=== PATIENT | female | born 1990 | race Caucasian/White ===

== ENCOUNTER 2017-05-27 03:06 | Inpatient (IN) | payer OTHER ==
[2017-05-27] MEDS ORDERED: OXYTOCIN* 10 UNITS/ML 1 ML VIAL IM ONE (11:54)
[2017-05-27] MEDS ORDERED: Acetaminophen TAB* 325 MG PO PRN (11:54)
[2017-05-27] MEDS ORDERED: Witch Hazel PAD* JAR TOPICAL PRN (11:54)
[2017-05-27] MEDS ORDERED: Glycerin ADULT SUPP PR PRN (11:54)
[2017-05-27] MEDS ORDERED: Dibucaine 1% 28.35 GM TUBE PR PRN (11:54)
[2017-05-27] MEDS ORDERED: Misoprostol TAB* 200 MCG PR ONE (12:05)
[2017-05-27] MEDS: Ibuprofen TAB* 600 MG PO PRN ×2 (12:29→19:18)
[2017-05-27] MEDS: Docusate CAP* 100 MG PO SCH ×2 (12:29→21:29)
[2017-05-27] MEDS ORDERED: Simethicone TAB* 80 MG TAB.CHEW PO SCH (12:30)
[2017-05-28] MEDS: Ibuprofen TAB* 600 MG PO PRN ×2 (04:04→11:27)
[2017-05-28 07:48] LABS: Hematocrit 36 % (35-47); Mean Corpuscular HGB Conc 34 g/dl (31-36); Mean Corpuscular Hemoglobin 32 pg (27-31); Mean Corpuscular Volume 95 fL (80-97); Mean Platelet Volume 9 um3 (7.4-10.4); Red Cell Distribution Width 14 % (10.5-15); White Blood Count 13.5 10^3/ul (3.5-10.8)
[2017-05-28] MEDS ORDERED: Ferrous Gluconate TAB* 324 MG TAB PO SCH (09:00)
[2017-05-28] MEDS: Docusate CAP* 100 MG PO SCH ×3 (09:34→20:52)
--- NOTE | 2017-05-28 20:47 | PTEDU ---
Patient Name: KENNY NOWAK KENNY NOWAK selected video: BBOB: Bonding Through Massage to view on 05/28/2017 at 8:45:18 PM [id number]
[2017-05-29] MEDS: Ibuprofen TAB* 600 MG PO PRN ×2 (00:28→09:01)
[2017-05-29 08:04] VITALS: BP 131/76
[2017-05-29] MEDS: Docusate CAP* 100 MG PO SCH (08:52)
== END 2017-05-29 12:20 | disposition home or self-care (01) | DRG 775 ==
LOC: MCHOBOUT 03:06 → MCHOB 03:47
PROVIDERS: ADMIT Midwife; ATTEND Midwife
PROC: 10E0XZZ Delivery of Products of Conception, External Approach (ICD-10-PCS; principal; 2017-05-27)
PROC: 0HQ9XZZ Repair Perineum Skin, External Approach (ICD-10-PCS; 2017-05-27)
DX: O70.0 First degree perineal laceration during delivery (principal); Z37.0 Single live birth; Z3A.39 39 weeks gestation of pregnancy
CPT/HCPCS: 36415; 85025; A9270-GY; J2590

== ENCOUNTER 2017-08-10 11:18 | Day surgery (SDC) | payer OTHER ==
[~2017-08-10 11:18] MED LIST: Buffered Lidocaine 0.9% SYRIN* 5 ML/SYR SYRINGE INTRADERM ONE
[2017-08-10] MEDS ORDERED: Midazolam* 1 MG/ML 2 ML VIAL (2 MG) ONE (16:06)
[2017-08-10] MEDS ORDERED: fentaNYL* 50 MCG/ML 2 ML VIAL (100 MCG VIAL) ONE (16:06)
[2017-08-10] MEDS ORDERED: Naloxone* 0.4 MG/ML 1 ML VIAL IV PRN (16:21)
[2017-08-10] MEDS ORDERED: Propofol* 10 MG/ML 20 ML BTL IV PUSH ONE (16:25)
[2017-08-10 17:05] VITALS: BP 116/75
--- NOTE | 2017-08-11 05:33 | OP ---
DATE OF OPERATION: 08/10/17 [facility] DATE OF : [birth year] SURGEON: Yovany Lei MD JAVA USER INTERFACE DEVELOPER: ERIBERTO Champion ANESTHESIOLOGIST: Dr. Sutherland ANESTHESIA: Local MAC. PRE-OP DIAGNOSIS: Large left dorsal wrist ganglion. POST-OP DIAGNOSIS: Large left dorsal wrist ganglion. OPERATIVE PROCEDURE: Excision of left wrist dorsal ganglion cyst. INDICATIONS: Stephanie recently gave a child. She has had a large dorsal wrist ganglion cyst that she has been dealing with for quite some time. It has been aspirated. It has come back. She wanted to have it excised. ESTIMATED BLOOD LOSS: 2 mL. COMPLICATIONS: None. FINDINGS: As expected. DESCRIPTION OF PROCEDURE: Stephanie was seen in the preoperative holding area. The correct side, site, and procedure were identified. We came back to the operating room. The arm was prepped and draped in the usual fashion. I had infiltrated the operative area with 0.25% plain Marcaine. A time-out was performed. I made a transverse incision over the cyst. Dissection was carried down carefully to preserve the traversing veins and to the extent possible and all of the traversing sensory nerves. The cyst was encountered. Marginal excisional was performed. The tendons were protected. This was taken back to dorsal wrist capsule and between the second, third and fourth compartments where it was easily seen coming off the wrist capsule. The cyst was amputated at the wrist capsule. Dorsal wrist capsule was cauterized with the Bovie extensively to try to prevent cyst recurrence. Everything was looking nice and clean. We irrigated out the wounds. Skin was closed with 4-0 Monocryl and Steri-Strips. The wound was dressed with 4x4s, sterile Webril and a cockup wrist splint was applied. Tourniquet was deflated and she was taken to recovery room in stable condition. [id number]/[facility] #: [id number] YG
== END 2017-08-10 17:06 | disposition home or self-care (01) ==
LOC: OREAST 11:18
PROVIDERS: ATTEND Orthopaedic Surgery Hand Surgery
DX: M67.432 Ganglion, left wrist (principal); R55 Syncope and collapse
CPT/HCPCS: 81025; 88304; J2250; J2704; J3010